=== PATIENT | male | born 1980 | race Hispanic/Latino ===

== ENCOUNTER 2016-10-26 01:00 | Emergency (ER) | payer MEDICAID ==
[2016-10-26 01:00] VITALS: BMI 29.1
--- NOTE | 2016-10-26 01:42 | ED PDOC ---
HPI: Psych/Substance Abuse Time Seen by Provider: 10/26/16 01:12 Chief Complaint (Nursing): Psychiatric Evaluation Chief Complaint (Provider): Psychiatric Evaluation History Per: Patient History/Exam Limitations: no limitations Suicide/Self Injury Attempted (Context): None Severity: None Additional Complaint(s): 36 year old male presents to ED requesting a detox bed at [facility]. Patient was at [facility] [place] a few hours ago and requested a detox bed there, but [facility] [place] did not have one. Patient requested to be brought to another hospital. Patient states that he is having suicidal ideation and has no suicidal plan. PCP: [facility] Past Medical History Reviewed: Historical Data, Nursing Documentation, Vital Signs Vital Signs: Last Vital Signs Temp 98.1 F 10/26/16 01:10 Pulse 78 10/26/16 01:10 Resp 15 10/26/16 01:10 BP 131/89 10/26/16 01:10 Pulse Ox 97 10/26/16 01:10 - Medical History PMH: Anxiety, Bipolar Disorder, Depression, Post Traumatic Stress Disorder Denies: HIV, HTN, Chronic Kidney Disease, Schizophrenia, Seizures, Sexually Transmitted Disease - Family History Family History: States: No Known Family Hx - Social History Alcohol: > 2 Drinks/Day - Immunization History Hx Tetanus Toxoid Vaccination: No Hx Influenza Vaccination: No Hx Pneumococcal Vaccination: No - Home Medications Home Medications: Ambulatory Orders Medication Instructions Recorded Clonazepam [Klonopin] 2 mg PO TID #45 tablet 10/04/16 Famotidine [Pepcid] 20 mg PO DAILY #10 tab 10/04/16 Fluoxetine HCl [Prozac] 40 mg PO DAILY #14 cap 10/04/16 Folic Acid 1 mg PO DAILY #14 tab 10/04/16 Mirtazapine [Remeron] 45 mg PO HS PRN #22 tab 10/04/16 Multivitamin Therapeutic Tab 1 tab PO DAILY #14 tab 10/04/16 [Thera Tab] Nicotine 21 mg/24 hr [Nicoderm Cq] 1 patch TD DAILY #14 patch 10/04/16 Propranolol [Propranolol HCl] 20 mg PO BID #60 tab 10/04/16 QUEtiapine [SEROquel XR] 400 mg PO AMHS #30 ter 10/04/16 Thiamine [Vitamin B1 Tab] 100 mg PO DAILY #14 tab 10/04/16 Omeprazole Magnesium [Prilosec Otc] 20 mg PO DAILY 10/25/16 - Allergies Allergies/Adverse Reactions: Allergies Allergy/AdvReac Type Severity Reaction Status Date / Time No Known Allergies Allergy Verified 10/26/16 01:09 Review of Systems ROS Statement: Except As Marked, All Systems Reviewed And Found Negative Psych: Positive for: Suicidal ideation Physical Exam - Reviewed Nursing Documentation Reviewed: Yes Vital Signs Reviewed: Yes - Physical Exam Appears: Positive for: Non-toxic Head Exam: Positive for: ATRAUMATIC Skin: Positive for: Normal Color Eye Exam: Positive for: Normal appearance ENT: Positive for: Normal ENT Inspection Neck: Positive for: Normal Cardiovascular/Chest: Positive for: Regular Rate, Rhythm Respiratory: Positive for: Normal Breath Sounds. Negative for: Respiratory Distress Gastrointestinal/Abdominal: Positive for: Normal Exam, Soft. Negative for: Tenderness Extremity: Positive for: Normal ROM. Negative for: Deformity Neurologic/Psych: Positive for: Alert, Oriented. Negative for: Motor/Sensory Deficits - ECG O2 Sat by Pulse Oximetry: 97 (RA) Pulse Ox Interpretation: Normal Medical Decision Making Medical Decision Makin Initial impression: alleged suicidal ideation in setting of alcohol dependence Initial plan: * UDrug Screen * Crisis eval 0200 Patient was seen by crisis, and is stable for discharge home. Dx: alcohol dependence Scribe Attestation: Documented by Vera Chavarria acting as a scribe for Pranav Brar MD. Scribe Attestation: All medical record entries made by the Scribe were at my direction and personally dictated by me. I have reviewed the chart and agree that the record accurately reflects my personal performance of the history, physical exam, medical decision making, and the department course for this patient. I have also personally directed, reviewed, and agree with the discharge instructions and disposition. Disposition - Clinical Impression Clinical Impression: Alcohol dependence - Patient ED Disposition Is Patient to be Admitted: No Counseled Patient/Family Regarding: Diagnosis - Disposition Disposition: Routine/Home Disposition Time: 02:00 Condition: STABLE Instructions: Alcohol Dependence (ED)
[2016-10-26 06:22] VITALS: BP 142/68; PULSE 79; RESP 17; TEMP 98.4; O2SAT 99
== END 2016-10-26 06:22 | disposition home or self-care (01) ==
LOC: H.ER 01:00
DX: F10.20 Alcohol dependence, uncomplicated (principal); F31.9 Bipolar disorder, unspecified; F41.9 Anxiety disorder, unspecified; F43.10 Post-traumatic stress disorder, unspecified

== ENCOUNTER 2017-07-02 01:24 | Emergency (ER) | payer MEDICAID ==
[2017-07-02 01:24] VITALS: BMI 30.9
[2017-07-02 01:38] VITALS: BP 138/89; PULSE 76; RESP 16; TEMP 98.9; O2SAT 99
[2017-07-02] MEDS ORDERED: Oxycodone/Acetaminophen 5/325 mg Tab PO STA (02:00)
[2017-07-02] MEDS ORDERED: Oxycodone/Acetaminophen 5/325 mg Tab ONE (02:19)
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
--- NOTE | 2017-07-02 02:34 | CT ---
EXAM: CT Maxillofacial Without Intravenous Contrast CLINICAL HISTORY: 37 years old, male; Pain; Jaw pain TECHNIQUE: Axial computed tomography images of the face without intravenous contrast. All CT scans at this facility use one or more dose reduction techniques, viz.: automated exposure control; ma/kV adjustment per patient size (including targeted exams where dose is matched to indication; i.e. head); or iterative reconstruction technique. Coronal and sagittal reformatted images were created and reviewed. COMPARISON: No relevant prior studies available. FINDINGS: Bones/joints: Minimally displaced fracture left parasymphyseal region of mandible. Soft tissues: Soft tissue swelling about mandible. Orbits: Unremarkable as visualized. Sinuses: Scattered minimal mucosal thickening. No air-fluid levels. Mastoid air cells: No mastoid effusion. IMPRESSION: 1. Mandible fracture. 2. Incidental/non-acute findings are described above.
== END 2017-07-02 03:12 | disposition home or self-care (01) ==
LOC: H.ER 01:24
DX: S02.69XB Fracture of mandible of other specified site, initial encounter for open fracture (principal); Y04.0XXA Assault by unarmed brawl or fight, initial encounter; Y92.89 Other specified places as the place of occurrence of the external cause; F31.9 Bipolar disorder, unspecified; F43.10 Post-traumatic stress disorder, unspecified; F17.210 Nicotine dependence, cigarettes, uncomplicated